=== PATIENT | male | born 1970 | race American Indian/Alaskan Native ===

== ENCOUNTER 2019-01-02 14:54 | Outpatient (CLI) | payer MEDICAID ==
--- NOTE | 2019-01-02 15:40 | XRay Report ---
XRAY CHEST TWO VIEWS: 01/02/19 14:54:00 CLINICAL: Cough. COMPARISON: None FINDINGS: Normal heart and pulmonary vasculature. The lungs are normally expanded and clear.The bones and soft tissues are unremarkable. IMPRESSION: Normal chest.
== END 2019-01-02 14:55 | disposition home or self-care (01) ==
LOC: SPVIMAG 14:54
DX: J20.9 Acute bronchitis, unspecified (principal)
CPT/HCPCS: 71046